=== PATIENT | male | born 1955 | race Caucasian/White ===

== ENCOUNTER 2020-03-30 12:09 | Outpatient (CLI) | payer OTHER | END 2020-03-30 23:59 | disposition home or self-care (01) | LOC: LAB 12:09 | PROVIDERS: ATTEND Specialist | DX: Z01.812 Encounter for preprocedural laboratory examination (principal); Z20.828 Contact with and (suspected) exposure to other viral communicable diseases | CPT/HCPCS: 87426; C9803; U0003 ==

== ENCOUNTER 2020-05-18 07:28 | Inpatient (IN) | payer OTHER ==
[~2020-05-18] VITALS: Ht 167.6 cm; Wt 88.5 kg
[~2020-05-18 07:28] MED LIST: ATOR40TA PO; CYCL7.5T PO; GABA800T11 PO; IBUP-1953 PO; MAGN250T10 PO; NIFE-35 PO; NORT25CA PO
[2020-05-18 08:15] VITALS: BP 145/85
[2020-05-18] MEDS ORDERED: BUPIVACAINE 0.5 % PF 150 MG/30 ML VIAL ONE (09:29)
[2020-05-18] MEDS ORDERED: BACITRACIN 50000 UNITS/VIAL ONE (09:29)
[2020-05-18] MEDS ORDERED: ANESTHESIA TRAY IN PYXIS 1 EA TRAY MC ONE (09:29)
--- NOTE | 2020-05-18 09:41 | NUR ---
RN NOTES PATIENT TAKEN TO OR VIA PATIENT'S BED, ACCOMPANIED BY 2 OR NURSES.
[2020-05-18] MEDS ORDERED: FENTANYL PF 100MCG/2ML AMPUL ONE (09:47)
[2020-05-18] MEDS ORDERED: KETAMINE HCL (500MG/10ML) 50 MG/ML VIAL ONE (09:47)
[2020-05-18] MEDS ORDERED: SCOPOLAMINE PATCH 1 MG/72HR TD ONE (09:48)
[2020-05-18] MEDS ORDERED: PROPOFOL 100 ML ONE (10:05)
[2020-05-18] MEDS ORDERED: TRANEXAMIC ACID 3,000 MG in SODIUM CHLORIDE IRRIG SOLUTION 70 ML IR ONE (11:00)
[2020-05-18] MEDS ORDERED: SEVOFLURANE 250 ML BOTTLE IH ONE (11:37)
[2020-05-18] MEDS ORDERED: DESFLURANE 240 ML BOTTLE IH ONE (11:41)
[2020-05-18] MEDS ORDERED: DOCUSATE SODIUM 250 MG CAPSULE PO PRN (13:30)
[2020-05-18] MEDS ORDERED: HYDROMORPHONE 1 MG/1 ML DISP.SYRIN IV PRN (13:30)
[2020-05-18] MEDS ORDERED: HYDROCODONE/APAP 5/325MG TABLET PO PRN (13:30)
[2020-05-18] MEDS ORDERED: ZOLPIDEM TARTRATE 5 MG TABLET PO PRN (13:30)
[2020-05-18] MEDS ORDERED: IV LR 1000 ML 1,000 ML IV PRN ×2 (13:30→15:00)
[2020-05-18] MEDS ORDERED: BISACODYL SUPP (10 MG) 10 MG/SUPP.RECT SUPP.RECT RC PRN (13:30)
[2020-05-18] MEDS ORDERED: ONDANSETRON HCL/PF 4 MG/2 ML VIAL IVP PRN (13:30)
[2020-05-18] MEDS ORDERED: SENNOSIDES 8.6 MG TABLET PO PRN (13:30)
[2020-05-18] MEDS ORDERED: MAG HYDROX/AL HYDROX/SIMETH 30 ML UDC PO PRN (14:00)
[2020-05-18] MEDS ORDERED: METHOCARBAMOL (500MG) 500 MG TABLET PO PRN (14:00)
[2020-05-18] MEDS ORDERED: CLONIDINE HCL 0.1 MG TABLET PO PRN (14:00)
[2020-05-18] MEDS ORDERED: BUTALB/APAP/CAFFEINE 1 EACH TABLET PO PRN ×2 (14:00)
[2020-05-18] MEDS ORDERED: MAGNESIUM HYDROXIDE 30 ML UDC PO PRN (14:00)
--- NOTE | 2020-05-18 16:41 | NUR ---
RN NOTES INDER Casey/ DR. STAPLETON FOR PATIENT TO BE ON CLEAR LIQUIDS AND ADVANCE TOLERATED.
[2020-05-18] MEDS: HYDROMORPHONE 1 MG/1 ML DISP.SYRIN IM/IV/SC PRN ×2 (16:48→21:18)
[2020-05-18] MEDS: MAGNESIUM OXIDE 400 MG TABLET PO SCH (17:00)
[2020-05-18] MEDS: DOCUSATE SODIUM 100 MG CAPSULE PO SCH (17:00)
[2020-05-18] MEDS ORDERED: GABAPENTIN 400 MG CAPSULE PO SCH (17:00)
[2020-05-18] MEDS: NORTRIPTYLINE HCL 25 MG CAPSULE PO SCH (17:00)
[2020-05-18] MEDS: diphenhydrAMINE HCL 25 MG CAPSULE PO PRN (18:32)
[2020-05-18] MEDS: HYDROCODONE/APAP 5/325MG TABLET PO PRN (18:36)
--- NOTE | 2020-05-18 18:36 | NUR ---
RN NOTES PATIENT IS FOR DAY SURGERY, S/P L TOTAL HIP ARTHROPLASTY. PER DR. SHEN, PATIENT TO STAY OVERNIGHT. MED RECON DONE BY DR. STAPLETON.
--- NOTE | 2020-05-18 19:32 | NUR ---
RN NOTES PATIENT IS IN BED RESTING, AWAKE AND VERBALLY RESPONSIVE, NOT IN ACUTE DISTRESS. A/O X4, ABLE TO MAKE NEEDS KNOWN. TOLERATES CLEAR LIQUIDS AT THIS TIME AND ABLE TO EAT SALTINE CRACKERS W/O COMPLAINT OF NAUSEA NOR VOMITING. PRN ANALGESICS GIVEN ORDERED, VERBALIZED DECREASE IN PAIN. SAFETY PRECAUTIONS IN PLACE: BED LOCKED AND ON LOWEST POSITION, SR UP X2, CALL LIGHT W/IN REACH. WILL ENDORSE TO BROADCAST OPERATIONS DIRECTOR NURSE FOR IMELDA.
--- NOTE | 2020-05-18 19:45 | NUR ---
MS RN OPENING NOTES PATIENT AWAKE IN BED. A/OX4. ON RA; NO S/S OF SOB; BREATHING IS EVEN AND UNLABORED. PATIENT C/O SLIGHT SWELLING AND PAIN ON UPPER LIP; PER PATIENT, LAST SURGERY ON LEFT KNEE SIX WEEKS AGO HE HAD SWELLING ON UPPER LIP POST-OP; PATIENT ABLE TO DRINK/SWALLOW WATER WITHOUT DIFFICULTY. IV PRESENT ON LEFT FA, SIZE 20, INTACT & PATENT, HEP LOCKED. LEFT HIP SURGICAL DRESSING IS DRY AND INTACT. SAFETY MEASURES IN PLACE AND PATIENT'S NEEDS MET. BED LOCKED, SIDE RAILS X2, CALL LIGHT WITHIN REACH. WILL CONTINUE TO MONITOR.
[2020-05-18] MEDS: ANCEF 1 GM/50 ML D5W IV SCH ×2 (20:15)
[2020-05-18] MEDS: GABAPENTIN 300 MG CAPSULE PO SCH (21:17)
[2020-05-18] MEDS: FAMOTIDINE (20 MG) 20 MG TABLET PO SCH (21:18)
[2020-05-18] MEDS: MENTHOL/CETYLPYRD (CEPACOL) 1 LOZ LOZENGE PO PRN ×2 (21:30→23:41)
[2020-05-18] MEDS ORDERED: GABAPENTIN 300 MG CAPSULE PO SCH (22:00)
--- NOTE | 2020-05-18 23:58 | NUR ---
MS RN NOTES PATIENT C/O OF DIFFICULTY URINATING AND LOWER ABDOMINAL PAIN. LOWER ABDOMEN IS HARD AND DISTENDED. BLADDER SCANNER PERFORMED AND SHOWED 630 ML OF URINE. NOTIFIED CARTON LINER RASHAWN GALVEZ. RECEIVED ORDER FOR ONE TIME STRAIGHT CATH.
[2020-05-19] MEDS: HYDROMORPHONE 1 MG/1 ML DISP.SYRIN IM/IV/SC PRN ×3 (00:32→13:42)
--- NOTE | 2020-05-19 00:40 | NUR ---
MS RN NOTES UNABLE TO INSERT STRAIGHT CATH. NOTIFIED METAL COATER RASHAWN GALVEZ. RECEIVED ORDERS FOR INDWELLING CUDET CATHETER. CATHETER INSERTED BY ER NURSEVIANCA. CLEAR YELLOW URINE DRAINING WELL; PATIENT STATED RELIEF OF BLADDER PRESSURE. WILL CONTINUE TO MONITOR.
[2020-05-19] MEDS: ANCEF 1 GM/50 ML D5W IV SCH ×2 (04:07)
[2020-05-19 06:45] LABS: BASOPHILS % (AUTO) 0.1 % (0.0-2.0); HEMATOCRIT 34 % (39-51); HEMOGLOBIN 11.3 g/dL (13.5-17.5); LYMPHOCYTES # (AUTO) 1.6 /CMM (0.8-4.8); LYMPHOCYTES % (AUTO) 19.7 % (20.0-44.0); MEAN CORPUSCULAR HGB CONC 33 g/dl (31.0-36.0); MEAN CORPUSCULAR VOLUME 91 fL (80-96); MONOCYTES # (AUTO) 0.7 /CMM (0.1-1.30); MONOCYTES % (AUTO) 7.9 % (2.0-12.0); NEUTROPHILS % (AUTO) 72.3 % (43.0-81.0); PLATELET COUNT (AUTO) 235 /CMM (150-450); RED BLOOD CELL COUNT(AUTO) 3.73 MIL/uL (4.5-6.0); WHITE BLOOD COUNT (AUTO) 8.3 K/uL (4.3-11.0)
[2020-05-19 06:55] LABS: CALCIUM, SERUM 8.7 mg/dL (8.5-10.1); CREATININE 1.2 mg/dL (0.6-1.3); POTASSIUM 4.5 mmol/L (3.5-5.1)
[2020-05-19 07:06] LABS: THYROID STIMULATING HORMONE 0.145 uIU/mL (0.358-3.74)
--- NOTE | 2020-05-19 07:26 | NUR ---
MS/RN OPENING NOTES RECEIVED PATIENT ON BED AWAKE ALERT AND ORIENTED X4. PATIENT IN NO APPARENT RESPIRATORY DISTRESS NOTED. NO COMPLAINED OF PAIN AT THIS TIME. PATIENT COMPLAINED OF ETCHING AND SWOLLEN LIPS. BENADRYL 25MG 1 TAB WAS GIVEN. WILL CONTINUE TO MONITOR.
[2020-05-19] MEDS: diphenhydrAMINE HCL 25 MG CAPSULE PO PRN ×2 (07:31→13:46)
--- NOTE | 2020-05-19 07:50 | NUR ---
MS RN CLOSING NOTES PATIENT SLEEPING, EASY TO AWAKEN. A/OX4. ON RA; NO S/S OF SOB; BREATHING IS EVEN AND UNLABORED. NO S/S OF PAIN NOTED. IV PRESENT ON LEFT FA, SIZE 20, INTACT & PATENT, HEP LOCKED. LEFT HIP SURGICAL DRESSING IS DRY AND INTACT. SAFETY MEASURES IN PLACE AND PATIENT'S NEEDS MET. BED LOCKED, SIDE RAILS X2, CALL LIGHT WITHIN REACH. ENDORSED TO DAY SHIFT RN PLAN OF CARE.
[2020-05-19 08:00] VITALS: BP 140/78
[2020-05-19] MEDS: FAMOTIDINE (20 MG) 20 MG TABLET PO SCH ×2 (08:37→21:34)
[2020-05-19] MEDS: MAGNESIUM OXIDE 400 MG TABLET PO SCH ×2 (08:38→17:12)
[2020-05-19] MEDS: NIFEdipine XL (30MG) 30 MG TAB PO SCH (08:38)
[2020-05-19] MEDS: BETHANECHOL CHLORIDE (25 MG) 25 MG TABLET PO SCH ×3 (08:39→21:34)
[2020-05-19] MEDS: DOCUSATE SODIUM 100 MG CAPSULE PO SCH ×2 (08:39→17:11)
[2020-05-19] MEDS: ESCITALOPRAM OXALATE (10 MG) 10 MG TABLET PO SCH (08:39)
[2020-05-19] MEDS: ASPIRIN 325 MG TABLET PO SCH ×2 (08:39→17:11)
[2020-05-19] MEDS: TAMSULOSIN 0.4 MG CAP.SR.24H PO SCH (08:39)
[2020-05-19] MEDS: ATORVASTATIN 40 MG TABLET PO SCH (08:39)
[2020-05-19] MEDS: NORTRIPTYLINE HCL 25 MG CAPSULE PO SCH ×2 (09:57→17:11)
[2020-05-19 16:00] VITALS: BP 131/86
[2020-05-19] MEDS: ACETAMINOPHEN 325 MG TABLET PO PRN (17:09)
--- NOTE | 2020-05-19 17:09 | NUR ---
MS/RN NOTES PATIENT COMPLAINED OF HEADACHE AND PATIENT REQUEST FOR TYLENOL 650 MG 1 TAB P.O AND WAS GIVEN. WILL CONTINUE TO MONITOR.
--- NOTE | 2020-05-19 19:36 | NUR ---
MS RN OPENING NOTES PATIENT SLEEPING, AWAKENS TO NAME. A/OX4. ON RA; NO S/S OF ACUTE RESPIRATORY DISTRESS; BREATHING IS EVEN AND UNLABORED. NO C/O PAIN. SURGICAL DRESSING ON LEFT HIP DRY AND INTACT. IV PRESENT ON LEFT FA, SIZE 10, INTACT & PATENT, HEP LOCKED. HUDDLESTON CATH PRESENT AND DRAINING WELL; CLEAR YELLOW URINE PRESENT. SAFETY MEASURES IN PLACE AND PATIENT'S NEEDS MET. BED LOCKED, SEMI FOWLERS POSITION, SIDE RAILS X 2, CALL LIGHT WITHIN REACH. WILL CONTINUE TO MONITOR.
--- NOTE | 2020-05-19 19:42 | NUR ---
MS/RN CLOSING NOTES PATIENT IS ALERT AND ORIENTED X4. PATIENT IN NO APPARENT RESPIRATORY DISTRESS NOTED. NO COMPLAINED OF PAIN AT THIS TIME. IV ACCESS AT LEFT FOREARM # 20 G PATENT AND INTACT. SEEN AND EXAMINED BY MD WITH ORDERS MADE AND CARRIED OUT. ALL DUE MEDICATIONS WAS GIVEN. SAFETY PRECAUTIONS WAS IN PLACED. BED IN LOWEST POSITION AND LOCKED. SIDERAILS UP X 2. CALL LIGHT WITHIN REACH. WILL ENDORSED TO SOLAR SALES REP FOR IMELDA.
[2020-05-19 20:39] VITALS: BP 136/77
[2020-05-19] MEDS: GABAPENTIN 300 MG CAPSULE PO SCH (21:34)
[2020-05-19] MEDS: MENTHOL/CETYLPYRD (CEPACOL) 1 LOZ LOZENGE PO PRN (21:34)
[2020-05-20 00:07] VITALS: BP 111/69
[2020-05-20] MEDS: HYDROMORPHONE 1 MG/1 ML DISP.SYRIN IM/IV/SC PRN ×4 (00:07→20:33)
[2020-05-20 04:00] VITALS: BP 117/67
--- NOTE | 2020-05-20 07:19 | NUR ---
MS RN NOTES PATIENT IN BED EYES CLOSED, EASILY AWAKEN. ALERT ORIENTED X 4. NO ACUTE DISTRESS NOTED. NO SOB NOTED. NO FACIAL GRIMACING NOTED. IV ACCESS PATENT AND INTACT, NO REDNESS, NO SWELLING NOTED. HEAD OF BED ELEVATED. SAFETY MEASURES IN PLACE. CALL LIGHT WITHIN REACH. WILL CONTINUE TO MONITOR ACCORDINGLY.
--- NOTE | 2020-05-20 07:45 | NUR ---
MS RN OPENING NOTES PATIENT SLEEPING. A/OX4. ON RA; NO S/S OF ACUTE RESPIRATORY DISTRESS; BREATHING IS EVEN AND UNLABORED. NO S/S OF PAIN NOTED. SURGICAL DRESSING ON LEFT HIP DRY AND INTACT. IV PRESENT ON LEFT FA, SIZE 10, INTACT & PATENT, HEP LOCKED. HUDDLESTON CATH PRESENT AND DRAINING WELL; CLEAR YELLOW URINE PRESENT. SAFETY MEASURES IN PLACE AND PATIENT'S NEEDS MET. BED LOCKED, SIDE RAILS X 2, CALL LIGHT WITHIN REACH. ENDORSED TO DAY SHIFT RN PLAN OF CARE.
[2020-05-20 08:00] VITALS: BP 110/72
[2020-05-20] MEDS: BETHANECHOL CHLORIDE (25 MG) 25 MG TABLET PO SCH ×3 (09:07→20:35)
[2020-05-20] MEDS: DOCUSATE SODIUM 100 MG CAPSULE PO SCH ×2 (09:07→17:31)
[2020-05-20] MEDS: ATORVASTATIN 40 MG TABLET PO SCH (09:07)
[2020-05-20] MEDS: ASPIRIN 325 MG TABLET PO SCH ×2 (09:07→17:31)
[2020-05-20] MEDS: NORTRIPTYLINE HCL 25 MG CAPSULE PO SCH ×2 (09:08→17:31)
[2020-05-20] MEDS: ESCITALOPRAM OXALATE (10 MG) 10 MG TABLET PO SCH (09:08)
[2020-05-20] MEDS: FAMOTIDINE (20 MG) 20 MG TABLET PO SCH ×2 (09:08→20:35)
[2020-05-20] MEDS: TAMSULOSIN 0.4 MG CAP.SR.24H PO SCH (09:08)
[2020-05-20] MEDS: NIFEdipine XL (30MG) 30 MG TAB PO SCH (09:09)
[2020-05-20] MEDS: MAGNESIUM OXIDE 400 MG TABLET PO SCH ×2 (09:46→17:31)
[2020-05-20] MEDS: HYDROCODONE/APAP 5/325MG TABLET PO PRN (10:09)
--- NOTE | 2020-05-20 10:17 | NUR ---
MS RN NOTES PATIENT CHANGED MIND DOES NOT WANT TO TAKE NORCO.
[2020-05-20] MEDS: ACETAMINOPHEN 325 MG TABLET PO PRN (10:24)
--- NOTE | 2020-05-20 13:54 | NUR ---
MS RN NOTES CLARIFIED WITH DR NYDIA STAPLETON IF HE'S OK WITH THE [facility] ADMINISTRATION SCHEDULE 0900, 1300 AND 2100.
[2020-05-20 16:00] VITALS: BP 120/70
--- NOTE | 2020-05-20 19:00 | NUR ---
MS RN NOTES PATIENT IN BED ALERT ORIENTED X 4. NO ACUTE DISTRESS NOTED. NO SOB NOTED. PATIENT COMFORTABLE, NO FACIAL GRIMACING NOTED. IV ACCESS PATENT AND INTACT, NO REDNESS, NO SWELLING NOTED. NEEDS ATTENDED AND ANTICIPATED. SAFETY MEASURES IN PLACE. CALL LIGHT WITHIN REACH. WILL ENDORSE TO NIGHT NURSE FOR CONTINUITY OF CARE.
--- NOTE | 2020-05-20 19:52 | NUR ---
MS/RN OPENING NOTE Patient awake in bed, A/O x4, WBAT. Breath sounds even, clear, unlabored. No acute distress or SOB on room air. Brachial and pedal pulse 2+, symmetrical. No JVD. CRP <3seconds. Skin warm, pink, dry, appropriate for ethnicity. Surgical incision noted on left hip, dressing intact, dry, no drainage. IV site LFA 20g saline locked, patent and intact. No signs of redness or infiltration. Abdomen round, soft, non-tender. BS active. Mesa catheter in place. Urine output clear and yellow. Patient is incontinent. Bed in low position, wheels locked, side rails up x2, call light within reach.
[2020-05-20 20:00] VITALS: BP 117/72
[2020-05-20 20:58] VITALS: BP 117/72
[2020-05-20] MEDS: GABAPENTIN 300 MG CAPSULE PO SCH (21:33)
[2020-05-21 07:21] LABS: CALCIUM, SERUM 8.3 mg/dL (8.5-10.1); CREATININE 1.1 mg/dL (0.6-1.3); POTASSIUM 3.7 mmol/L (3.5-5.1)
--- NOTE | 2020-05-21 07:21 | NUR ---
MS/RN CLOSING NOTE Patient awake in bed, A/O x4, WBAT. Breath sounds even, clear, unlabored. No acute distress or SOB on room air. Brachial and pedal pulse 2+, symmetrical. Skin warm, pink, dry, appropriate for ethnicity. Surgical incision noted on left hip, dressing intact, dry, no drainage. IV site LFA 20g saline locked, patent and intact. No signs of redness or infiltration. Mesa catheter in place. Urine output clear and yellow. Bed in low position, wheels locked, side rails up x2, call light within reach.
--- NOTE | 2020-05-21 07:32 | NUR ---
RN MS OPENING NOTES RECEIVED PATIENT RESTING IN BED AWAKE, A/OX4. PATIENT ON RA WITH NO C/O OR S/S OF SOB, BREATHING EVEN AND UNLABORED, NO ACUTE RESPIRATORY DISTRESS NOTED. IV TO LT FA #20G PATENT AND INTACT FLUSHING WELL. PT C/O PAIN 8/10 ON PAIN SCALE TO LT HIP AREA, DRESSING IN PLACE KEPT CLEAN AND DRY. BED IS AT LOWEST POSITION AND LOCKED WITH SIDE RAILS UPX2 AND CALL LIGHT WITH IN REACH. ALL SAFETY MEASURES IN PLACE. WILL CONTINUE TO MONITOR PATIENT THROUGH OUT SHIFT.
[2020-05-21 07:34] LABS: BASOPHILS % (AUTO) 0.3 % (0.0-2.0); EOSINOPHILS % (AUTO) 0.5 % (0.0-6.0); HEMATOCRIT 33 % (39-51); HEMOGLOBIN 11.2 g/dL (13.5-17.5); LYMPHOCYTES # (AUTO) 1.9 /CMM (0.8-4.8); LYMPHOCYTES % (AUTO) 23.6 % (20.0-44.0); MEAN CORPUSCULAR HGB CONC 34 g/dl (31.0-36.0); MEAN CORPUSCULAR VOLUME 91 fL (80-96); MONOCYTES # (AUTO) 0.8 /CMM (0.1-1.30); MONOCYTES % (AUTO) 9.9 % (2.0-12.0); NEUTROPHILS # (AUTO) 5.2 /CMM (1.8-8.9); NEUTROPHILS % (AUTO) 65.7 % (43.0-81.0); PLATELET COUNT (AUTO) 224 /CMM (150-450); RED BLOOD CELL COUNT(AUTO) 3.67 MIL/uL (4.5-6.0); WHITE BLOOD COUNT (AUTO) 7.9 K/uL (4.3-11.0)
[2020-05-21] MEDS: HYDROMORPHONE 1 MG/1 ML DISP.SYRIN IM/IV/SC PRN ×3 (07:48→18:54)
[2020-05-21 08:00] VITALS: BP 119/68
[2020-05-21] MEDS: ATORVASTATIN 40 MG TABLET PO SCH (09:23)
[2020-05-21] MEDS: ESCITALOPRAM OXALATE (10 MG) 10 MG TABLET PO SCH (09:23)
[2020-05-21] MEDS: ASPIRIN 325 MG TABLET PO SCH ×2 (09:23→17:02)
[2020-05-21] MEDS: DOCUSATE SODIUM 100 MG CAPSULE PO SCH ×2 (09:23→17:02)
[2020-05-21] MEDS: TAMSULOSIN 0.4 MG CAP.SR.24H PO SCH (09:23)
[2020-05-21] MEDS: MAGNESIUM OXIDE 400 MG TABLET PO SCH ×2 (09:23→17:03)
[2020-05-21] MEDS: BETHANECHOL CHLORIDE (25 MG) 25 MG TABLET PO SCH ×3 (09:24→21:16)
[2020-05-21] MEDS: FAMOTIDINE (20 MG) 20 MG TABLET PO SCH ×2 (09:24→21:16)
[2020-05-21] MEDS: NORTRIPTYLINE HCL 25 MG CAPSULE PO SCH ×2 (09:24→17:03)
[2020-05-21] MEDS: NIFEdipine XL (30MG) 30 MG TAB PO SCH (09:24)
[2020-05-21 16:00] VITALS: BP 120/73
[2020-05-21] MEDS: ACETAMINOPHEN 325 MG TABLET PO PRN (17:09)
[2020-05-21] MEDS: ONDANSETRON HCL/PF 4 MG/2 ML VIAL IV PRN (19:02)
--- NOTE | 2020-05-21 19:10 | NUR ---
RN MS OPENING NOTES RECEIVED PATIENT IN BED AWAKE ALERT AND ORIENTED X4, RESPIRATIONS EVEN AND UNLABORED WITH EQUAL RISE AND FALL OF CHEST, DENIES ANY PAIN OR DISCOMFORT AT THIS TIME. URINAL AT BEDSIDE AND WITHIN REACH, PT IS ABLE TO URINATE NO URINE RETENTION, IV SITE TO LEFT FA #20G INTACT AND PATENT, NO REDNESS, NO INFILTRATION PRESENT, SL. DRESSINGS REMAINS INTACT ORIENTED TO STAFF AND CALL LIGHT AND KEPT WITHIN REACH ,ALL NEEDS ATTENDED AT THIS TIME, WILL CONTINUE TO MONITOR AND ATTEND TO NEEDS. BED ALARM IN PLACE.
--- NOTE | 2020-05-21 19:21 | NUR ---
RN MS CLOSING NOTES PATIENT RESTING COMFORTABLY IN BED AWAKE, A/OX4. PATIENT ON RA WITH NO C/O OR S/S OF SOB, BREATHING EVEN AND UNLABORED, NO ACUTE RESPIRATORY DISTRESS NOTED. IV TO LT FA #20G PATENT AND INTACT FLUSHING WELL. PT C/O PAIN 9/10 ON PAIN SCALE TO LT HIP AREA DILAUDID 0.5MG GIVE IV, DRESSING IN PLACE KEPT CLEAN AND DRY. BED IS AT LOWEST POSITION AND LOCKED WITH SIDE RAILS UPX2 AND CALL LIGHT WITH IN REACH. ALL SAFETY MEASURES IN PLACE. PT AWAITING D/C PENDING APPROVAL FOR ACUTE REHAB, WILL ENDORSE TO ONCOMING SHIFT.
[2020-05-21 20:00] VITALS: BP 106/64
[2020-05-21] MEDS: diphenhydrAMINE HCL 25 MG CAPSULE PO PRN (21:16)
--- NOTE | 2020-05-21 21:16 | NUR ---
rn ms notes patient requested benadryl prn states he felt itchy. prn benadryl given as ordered, will continue to monitor for effectiveness.
[2020-05-21] MEDS: GABAPENTIN 300 MG CAPSULE PO SCH (21:19)
--- NOTE | 2020-05-22 04:41 | NUR ---
RN MS NOTES RECEIVED CALL FROM NEW ORDER TO DC 02 IN THE AM. AM SHIFT TO GIVE NORCO PRN WITH BREAKFAST, AND CONTINUE/APPLY SCD'S
--- NOTE | 2020-05-22 06:54 | NUR ---
RN MS CLOSING NOTES PATIENT IN BED AWAKE ALERT AND ORIENTED X4, RESPIRATIONS EVEN AND UNLABORED WITH EQUAL RISE AND FALL OF CHEST, DENIES ANY PAIN OR DISCOMFORT AT THIS TIME. URINAL AT BEDSIDE AND WITHIN REACH OUTPUT 300ML, PT IS ABLE TO URINATE NO URINE RETENTION, IV SITE TO LEFT FA #20G INTACT AND PATENT, NO REDNESS, NO INFILTRATION PRESENT, SL. DRESSINGS REMAINS INTACT TO LEFT HIP , SCD'S INTACT. CALL LIGHT KEPT WITHIN REACH ,ALL NEEDS ATTENDED AT THIS TIME, WILL CONTINUE TO MONITOR AND ATTEND TO NEEDS. BED ALARM IN PLACE AND ENDORSE TO NEXT SHIFT. SLEPT WELL.
--- NOTE | 2020-05-22 07:50 | NUR ---
RN MS OPENING NOTES RECEIVED PATIENT RESTING IN BED AWAKE, A/OX4. PATIENT ON RA WITH NO C/O OR S/S OF SOB, BREATHING EVEN AND UNLABORED, NO ACUTE RESPIRATORY DISTRESS NOTED. IV TO LT FA #20G PATENT AND INTACT FLUSHING WELL. NO C/O PAIN AT THIS TIME. DRESSING TO LT HIP IN PLACE; CLEAN AND DRY. BED IS AT LOWEST POSITION AND LOCKED WITH SIDE RAILS UPX2 AND CALL LIGHT WITH IN REACH. ALL SAFETY MEASURES IN PLACE. WILL CONTINUE TO MONITOR THROUGH SHIFT.
[2020-05-22 08:00] VITALS: BP 131/63
[2020-05-22] MEDS ORDERED: HYDROCODONE/APAP 5/325MG TABLET PO ONE (08:00)
[2020-05-22] MEDS: FAMOTIDINE (20 MG) 20 MG TABLET PO SCH ×2 (08:28→21:46)
[2020-05-22] MEDS: ESCITALOPRAM OXALATE (10 MG) 10 MG TABLET PO SCH (08:28)
[2020-05-22] MEDS: TAMSULOSIN 0.4 MG CAP.SR.24H PO SCH (08:28)
[2020-05-22] MEDS: NORTRIPTYLINE HCL 25 MG CAPSULE PO SCH ×2 (08:28→16:07)
[2020-05-22] MEDS: ATORVASTATIN 40 MG TABLET PO SCH (08:28)
[2020-05-22] MEDS: ASPIRIN 325 MG TABLET PO SCH ×2 (08:28→16:07)
[2020-05-22] MEDS: MAGNESIUM OXIDE 400 MG TABLET PO SCH ×2 (08:28→16:07)
[2020-05-22] MEDS: NIFEdipine XL (30MG) 30 MG TAB PO SCH (08:31)
[2020-05-22] MEDS: HYDROMORPHONE 1 MG/1 ML DISP.SYRIN IM/IV/SC PRN ×2 (11:35→16:20)
[2020-05-22 16:00] VITALS: BP 119/64
[2020-05-22] MEDS: ONDANSETRON HCL/PF 4 MG/2 ML VIAL IV PRN (16:52)
--- NOTE | 2020-05-22 18:22 | NUR ---
RN MS CLOSING NOTES PATIENT RESTING IN BED AWAKE, A/OX4. PATIENT ON RA WITH NO C/O SOB, BREATHING EVEN AND UNLABORED. IV TO LT FA #20G PATENT AND INTACT FLUSHING WELL. PT C/O PAIN 5/10 ON PAIN SCALE TO LT HIP. DRESSING IN PLACE KEPT CLEAN AND DRY. BED IS AT LOWEST POSITION AND LOCKED WITH SIDE RAILS UPX2 AND CALL LIGHT WITH IN REACH. ALL SAFETY MEASURES IN PLACE. PT WAITING ON APPROVAL FOR ACUTE REHAB, WILL ENDORSE TO ONCOMING SHIFT.
[2020-05-22 20:00] VITALS: BP 131/69
--- NOTE | 2020-05-22 20:27 | NUR ---
MS RN OPENING NOTES: RECEIVED PATIENT IN BED, AWAKE, WATCHING TV, NO COMPLAINS OF PAIN OR DISCOMFORT THIS TIME OF ASSESSMENT. PATIENT'S VITAL SIGNS ARE STABLE.NO RESPIRATORY DISTRESS NOTED. ASSISTED PATIENT WITH HIS NEEDS. WILL CONTINUE TO MONITOR PATIENT.
[2020-05-22] MEDS: GABAPENTIN 400 MG CAPSULE PO SCH (21:46)
[2020-05-23] MEDS: HYDROMORPHONE 1 MG/1 ML DISP.SYRIN IM/IV/SC PRN ×3 (03:45→22:01)
--- NOTE | 2020-05-23 06:56 | NUR ---
MS RN CLOSING NOTES: PATIENT RESTING ON BED COMFORTABLY. COMPLAINED OF PAIN DURING THE SHIFT. DILAUDID IV REQUESTED BY PATIENT- THIS IS A PRN ORDER. ATTENDED TO ALL PATIENT'S NEEDS. WILL ENDORSE PATIENT TO DAY SHIFT NURSE.
--- NOTE | 2020-05-23 07:45 | NUR ---
RN OPENING NOTE; RECEIVED PT LYING IN BED. NO ACUTE DISTRESS NOTED. VSS,AFEBRILE NO SOB NOTED. IV TO LFA INTACT, FLUSHING, NO S/SOX OF INFILTRATE OR INFECTION NOTED. PT A OX3, ABLE TO MAKE NEEDS KNOWN. STABEL ON RA. USING INCENTIVE SPIROMETER. INDEPENDENT WITH BED POSITIONING. BED IN LOW AND LOCKED POSITION WITH SIDE RAILS UP X 2 FOR SAFETY. WILL CONT TO MONITOR.
[2020-05-23 08:00] VITALS: BP 119/69
[2020-05-23] MEDS: FAMOTIDINE (20 MG) 20 MG TABLET PO SCH ×2 (09:25→21:52)
[2020-05-23] MEDS: ASPIRIN 325 MG TABLET PO SCH ×2 (09:25→16:33)
[2020-05-23] MEDS: NIFEdipine XL (30MG) 30 MG TAB PO SCH (09:25)
[2020-05-23] MEDS: MAGNESIUM OXIDE 400 MG TABLET PO SCH ×2 (09:26→16:33)
[2020-05-23] MEDS: ATORVASTATIN 40 MG TABLET PO SCH (09:26)
[2020-05-23] MEDS: NORTRIPTYLINE HCL 25 MG CAPSULE PO SCH ×2 (09:26→16:33)
[2020-05-23] MEDS: TAMSULOSIN 0.4 MG CAP.SR.24H PO SCH (09:26)
[2020-05-23] MEDS: ESCITALOPRAM OXALATE (10 MG) 10 MG TABLET PO SCH (09:29)
[2020-05-23 12:00] LABS: BASOPHILS % (AUTO) 0.2 % (0.0-2.0); EOSINOPHILS % (AUTO) 1.6 % (0.0-6.0); HEMATOCRIT 33 % (39-51); HEMOGLOBIN 10.8 g/dL (13.5-17.5); LYMPHOCYTES # (AUTO) 1.5 /CMM (0.8-4.8); LYMPHOCYTES % (AUTO) 22.3 % (20.0-44.0); MEAN CORPUSCULAR HGB CONC 33 g/dl (31.0-36.0); MEAN CORPUSCULAR VOLUME 90 fL (80-96); MONOCYTES # (AUTO) 0.6 /CMM (0.1-1.30); MONOCYTES % (AUTO) 9.6 % (2.0-12.0); NEUTROPHILS # (AUTO) 4.5 /CMM (1.8-8.9); NEUTROPHILS % (AUTO) 66.3 % (43.0-81.0); PLATELET COUNT (AUTO) 275 /CMM (150-450); WHITE BLOOD COUNT (AUTO) 6.7 K/uL (4.3-11.0)
[2020-05-23 12:15] LABS: CALCIUM, SERUM 8.5 mg/dL (8.5-10.1); CREATININE 1.2 mg/dL (0.6-1.3); POTASSIUM 3.3 mmol/L (3.5-5.1)
--- NOTE | 2020-05-23 12:35 | NUR ---
RN NOTE; PAIN PT REQUESTING PAIN MEDICATIONS. REPORTS PAIN AT LEFT HIP. MEDICATED WITH DILAUDID 0.5 MG IVP
--- NOTE | 2020-05-23 12:55 | NUR ---
RN NOTE; PAIN PT REPOTING GOOD RELIEF WITH IVP PAIN MEDICAITON
--- NOTE | 2020-05-23 14:45 | NUR ---
RN NOTE COVID-19 ANTIGEN ORDERED PER DAVID STAPLETON FOR PATIENT PLACEMENT. NOTED AND CARRIED OUT.
[2020-05-23 16:00] VITALS: BP_SYST 129; BP_SYST 160; BP_DIAS 75; BP_DIAS 90
--- NOTE | 2020-05-23 19:20 | NUR ---
MS/RN OPENING NOTES: RECEIVED PT LYING IN BED, A/OX4. VERBALLY RESPONSIVE AND ABLE TO MAKE NEEDS KNOWN. NO ACUTE DISTRESS NOTED. NO SOB NOTED. IV TO LFA INTACT, FLUSHING, STABLE ON RA. USING INCENTIVE SPIROMETER AT BED SIDE. AMBULATES TO THE BATHROOM WITH WALKER. INDEPENDENT WITH BED POSITIONING. SAFETY MEASURES IN PLACE. BED IN LOW AND LOCKED POSITION WITH SIDE RAILS UP X 2 FOR SAFETY. WILL CONTINUE TO MONITOR.
[2020-05-23 20:00] VITALS: BP 112/71
--- NOTE | 2020-05-23 20:41 | NUR ---
MS/RN NOTES: RELAYED POTASSIUM LEVEL OF 3.[address] MOROCHO, AND ORDERED POTASSIUM CHLORIDE 40MEQ PO ONE TIME.
[2020-05-23] MEDS ORDERED: POTASSIUM CHLORIDE 20 MEQ TAB.PRT.SR PO ONE (21:00)
[2020-05-23] MEDS: GABAPENTIN 400 MG CAPSULE PO SCH (21:52)
--- NOTE | 2020-05-23 22:01 | NUR ---
MS/RN NOTES: PT COMPLAINED OF PAIN ON THE LEFT HIP. REQUESTED DILAUDID. VSS AND WNL. ADMINISTERED DILAUDID 0.5MG Q6 ORDERED. WILL CONTINUE TO MONITOR.
--- NOTE | 2020-05-24 07:35 | NUR ---
MS/RN CLOSING NOTES: PT REMAINS IN BED, A/OX4. VERBALLY RESPONSIVE AND ABLE TO MAKE NEEDS KNOWN. NO ACUTE DISTRESS NOTED. NO SOB NOTED. IV TO LFA INTACT, FLUSHING, STABLE ON RA. USING INCENTIVE SPIROMETER AT BED SIDE. AMBULATES TO THE BATHROOM WITH WALKER. INDEPENDENT WITH BED POSITIONING. SAFETY MEASURES IN PLACE. BED IN LOW AND LOCKED POSITION WITH SIDE RAILS UP X 2 FOR SAFETY. ALL NURSING NEEDS MET AND RENDERED. ENDORSED TO DAY SHIFT FOR IMELDA.
[2020-05-24 08:00] VITALS: BP 118/74
--- NOTE | 2020-05-24 08:00 | NUR ---
RN OPENING NOTE: RECEIVED PT LYING IN BED. C/O 9/10 HIP PAIN. MEDICATED WITH DILAUDID IVP. NO RESPIRATORY DISTRESS OR SOB NOTED. IV TO LFA INTACT, PATENT WITHOUT S/SX OF INFECTION. PT STABLE ON RA. USING INCENTIVE SPIROMETER AT BED SIDE. STEADY WITH WALKER TO THE BATHROOM. INDEPENDENT WITH BED POSITIONING AND PO INTAKE. SAFETY MEASURES IN PLACE. BED IN LOW AND LOCKED POSITION WITH SIDE RAILS UP X 2 FOR SAFETY. CALL LIGHT WITHIN REACH WILL CONTINUE TO MONITOR.
[2020-05-24] MEDS: HYDROMORPHONE 1 MG/1 ML DISP.SYRIN IM/IV/SC PRN ×2 (08:31→23:41)
--- NOTE | 2020-05-24 08:32 | NUR ---
RN NOTE: PAIN PT C/O 02/24 LEFT HIP PAIN. REQUESTING PAIN MEDICATION. MEDICATED WITH DILAUDID 0.5 MG IVP
[2020-05-24] MEDS: ASPIRIN 325 MG TABLET PO SCH ×2 (08:40→18:16)
[2020-05-24] MEDS: TAMSULOSIN 0.4 MG CAP.SR.24H PO SCH (08:40)
[2020-05-24] MEDS: NORTRIPTYLINE HCL 25 MG CAPSULE PO SCH ×2 (08:40→18:16)
[2020-05-24] MEDS: ATORVASTATIN 40 MG TABLET PO SCH (08:40)
[2020-05-24] MEDS: ESCITALOPRAM OXALATE (10 MG) 10 MG TABLET PO SCH (08:40)
[2020-05-24] MEDS: NIFEdipine XL (30MG) 30 MG TAB PO SCH (08:40)
[2020-05-24] MEDS: FAMOTIDINE (20 MG) 20 MG TABLET PO SCH ×2 (08:41→21:45)
[2020-05-24] MEDS: MAGNESIUM OXIDE 400 MG TABLET PO SCH ×2 (08:41→18:16)
[2020-05-24 16:00] VITALS: BP 133/73
--- NOTE | 2020-05-24 19:00 | NUR ---
MS/RN OPENING NOTES: RECEIVED PT LYING IN BED, A/OX4. VERBALLY RESPONSIVE AND ABLE TO MAKE NEEDS KNOWN. ON ROOM AIR, SATURATING WELL. NO ACUTE DISTRESS NOTED. NO SOB NOTED. IV TO LFA INTACT, FLUSHING. USING INCENTIVE SPIROMETER AT BED SIDE. AMBULATES TO THE BATHROOM WITH WALKER. INDEPENDENT WITH BED POSITIONING. NO C/O PAIN AT THIS TIME. SAFETY MEASURES IN PLACE. BED IN LOW AND LOCKED POSITION WITH SIDE RAILS UP X 2 FOR SAFETY. WILL CONTINUE TO MONITOR.
[2020-05-24 20:00] VITALS: BP 126/72
[2020-05-24 20:31] VITALS: BP 126/72
[2020-05-24] MEDS: GABAPENTIN 400 MG CAPSULE PO SCH (21:45)
--- NOTE | 2020-05-25 | NUR ---
MS/RN NOTES: IV TO LFA INTACT PULLED OUT. STARTED A NEW IV LINE ON THE RIGHT HAND #22G INTACT AND PATENT, FLUSHING WELL.
--- NOTE | 2020-05-25 07:00 | NUR ---
MS/RN CLOSING NOTES: PT IN BED, REMAINS A/OX4. VERBALLY RESPONSIVE & ABLE TO MAKE NEEDS KNOWN. NO ACUTE DISTRESS NOTED. NO SOB NOTED. IV TO RIGHT HAND #22G INTACT, FLUSHING, STABLE ON RA. AMBULATES TO THE BATHROOM WITH WALKER. SAFETY MEASURES KEPT IN PLACE. BED IN LOW AND LOCKED POSITION WITH SIDE RAILS UP X 2 FOR SAFETY. ALL NURSING NEEDS MET AND RENDERED. DR. ENGLAND STOPPED BY THE UNIT AT 3AM, AND PER DR. ENGLAND, ENCOURAGE PT TO TAKE NORCO. PT INFORMED AND DAY SHIFT INFORMED. ENDORSED TO DAYSHIFT NURSE FOR IMELDA.
[2020-05-25 08:00] VITALS: BP 150/82
--- NOTE | 2020-05-25 08:00 | NUR ---
RN Opening note Received patient in bed AO x 4 able to responds all stimuli. C/O left hip pain for s/p arthroplasty and given Tylenol 650mg. Skin is warm to touch keep clean/dry, intact IV site on right CLEANING 22g. Respiratory even and unlabored on room air, O2sat 94%, no sob or distress observed. Kept bed locked with elevated HOB for ensure airway and aspiration precaution also lowest bed position for safety. Call light within reach will continue to monitor.
[2020-05-25] MEDS: ACETAMINOPHEN 325 MG TABLET PO PRN (08:05)
[2020-05-25] MEDS: ASPIRIN 325 MG TABLET PO SCH (09:19)
[2020-05-25] MEDS: ESCITALOPRAM OXALATE (10 MG) 10 MG TABLET PO SCH (09:19)
[2020-05-25] MEDS: FAMOTIDINE (20 MG) 20 MG TABLET PO SCH (09:20)
[2020-05-25] MEDS: NIFEdipine XL (30MG) 30 MG TAB PO SCH (09:20)
[2020-05-25] MEDS: TAMSULOSIN 0.4 MG CAP.SR.24H PO SCH (09:20)
[2020-05-25] MEDS: ATORVASTATIN 40 MG TABLET PO SCH (09:20)
[2020-05-25] MEDS: NORTRIPTYLINE HCL 25 MG CAPSULE PO SCH (09:21)
[2020-05-25] MEDS: MAGNESIUM OXIDE 400 MG TABLET PO SCH (09:21)
[2020-05-25 11:04] LABS: BASOPHILS % (AUTO) 0.4 % (0.0-2.0); EOSINOPHILS % (AUTO) 0.4 % (0.0-6.0); HEMATOCRIT 30 % (39-51); HEMOGLOBIN 10.2 g/dL (13.5-17.5); LYMPHOCYTES # (AUTO) 0.9 /CMM (0.8-4.8); LYMPHOCYTES % (AUTO) 16.4 % (20.0-44.0); MEAN CORPUSCULAR HGB CONC 34 g/dl (31.0-36.0); MEAN CORPUSCULAR VOLUME 90 fL (80-96); MONOCYTES # (AUTO) 0.6 /CMM (0.1-1.30); MONOCYTES % (AUTO) 10.2 % (2.0-12.0); NEUTROPHILS % (AUTO) 72.6 % (43.0-81.0); PLATELET COUNT (AUTO) 306 /CMM (150-450); RED BLOOD CELL COUNT(AUTO) 3.38 MIL/uL (4.5-6.0); WHITE BLOOD COUNT (AUTO) 5.5 K/uL (4.3-11.0)
[2020-05-25 11:32] LABS: CALCIUM, SERUM 8.4 mg/dL (8.5-10.1); CREATININE 1.1 mg/dL (0.6-1.3); POTASSIUM 3.3 mmol/L (3.5-5.1)
[2020-05-25 15:29] VITALS: BP 139/72
--- NOTE | 2020-05-25 15:50 | NUR ---
Patient discharge to home given discharge instruction include follow up Dr. Lebron and patient verbally understand. In stable condition, pain with actively but pt tolerated.
--- NOTE | 2020-05-25 16:34 | NUR ---
Patient left facility escorted by staff with wheel chair to the private car, denies discomfort, in stable. condition
== END 2020-05-25 16:30 | disposition home health service (06) | DRG 470 ==
LOC: DS 07:28 → MED 07:30
PROVIDERS: ADMIT Nurse Practitioner Acute Care; ATTEND Nurse Practitioner Acute Care
PROC: 0SRB0JZ Replacement of Left Hip Joint with Synthetic Substitute, Open Approach (ICD-10-PCS; principal; 2020-05-18)
DX: M16.12 Unilateral primary osteoarthritis, left hip (principal); I10 Essential (primary) hypertension; E78.5 Hyperlipidemia, unspecified; E66.9 Obesity, unspecified; F32.9 Major depressive disorder, single episode, unspecified; G43.909 Migraine, unspecified, not intractable, without status migrainosus; G62.9 Polyneuropathy, unspecified; Z86.73 Personal history of transient ischemic attack (TIA), and cerebral infarction without residual deficits; Z79.899 Other long term (current) drug therapy; M19.90 Unspecified osteoarthritis, unspecified site; Z96.653 Presence of artificial knee joint, bilateral; Z68.31 Body mass index [BMI] 31.0-31.9, adult; Z79.82 Long term (current) use of aspirin; Z85.72 Personal history of non-Hodgkin lymphomas; Z88.5 Allergy status to narcotic agent; F39 Unspecified mood [affective] disorder; R31.9 Hematuria, unspecified
CPT/HCPCS: 36415; 80048-TC; 80061-TC; 84443-TC; 85025-TC; 86850-TC; 87081-TC; 88305-TC; 88311-TC; 97112-TC; 97116-TC; 97530-TC; A4217; A6209; A6402; C1776; G0378; J0690; J1100; J1170; J1885; J2405; J3010; J3490; J7060; J7120; Q0163

== ENCOUNTER 2021-12-08 09:36 | Outpatient (CLI) | payer OTHER | END 2021-12-08 23:59 | disposition home or self-care (01) | LOC: LAB 09:36 | PROVIDERS: ATTEND Specialist | DX: Z01.812 Encounter for preprocedural laboratory examination (principal); Z20.822 Contact with and (suspected) exposure to COVID-19 | CPT/HCPCS: C9803; U0003 ==

== ENCOUNTER 2021-12-15 05:16 | Day surgery (SDC) | payer OTHER ==
[~2021-12-15] VITALS: Ht 167.6 cm; Wt 91.6 kg
--- NOTE | 2021-12-15 06:20 | NUR ---
RESTAURANT BARTENDER NOTES: RECEIVED PATIENT AT 0545 AMBULATORY FROM HOME ON SCHEDULE DAY SURGERY( RIGHT CARPAL TUNNEL RELEASE), ON ROOM AIR SATURATING WELL, PATIENT IS NPO SINCE 199912/14/21, PATIENT IS A/OX4, AMBULATORY USING CANE, SKIN ASSESSMENT DONE SKIN IS INTACT, INVENTORY DONE AND SIGNED, PATIENT CONSENT SIGNED, PLACE IV LINE AT [facility] #[facility] SL, MRSA DONE. STAT CXR DONE, PATIENT PLACED IN BED COMFORTABLY, VITAL SIGN ARE WITHIN NORMAL RANGE, PATIENT KEPT CLEAN AND DRY ALL NEEDS MET WILL CONTINUE TO MONITOR.
[2021-12-15] MEDS ORDERED: BUPIVACAINE 0.5 % PF 150 MG/30 ML VIAL ONE (06:35)
[2021-12-15 06:45] VITALS: BP 134/71
[2021-12-15] MEDS ORDERED: FENTANYL PF 100MCG/2ML AMPUL ONE (07:19)
--- NOTE | 2021-12-15 07:30 | NUR ---
RN CLOSING NOTES: PATIENT WAS COMPRESS ENGINEER AND TRANSFER TO OR BY THE STAFF AT 0650 ON STABLE CONDITION, ON STABLE CONDITION, NO COMPLAIN OF PAIN AND DISCOMFORT, CHART WAS TAKEN WITH ALL DOCUMENTATION, ENDORSEMENT GIVEN TO INCOMING NURSE INCLUDING PERSONAL BELONGING AT ROOM 321
[2021-12-15 09:10] VITALS: BP 117/70
--- NOTE | 2021-12-15 09:10 | NUR ---
PATIENT BACK FROM PROCEDURE, IN NO ACUTE DISTRESS OBSERVED. DOCUMENTED VITAL SIGNS IN AN INTERVENTION. WILL CONTINUE TO MONITOR.
--- NOTE | 2021-12-15 11:30 | NUR ---
PATIENT DISCHARGED FACILITY IN STABLE CONDITION.,DENIES PAIN OR DISCOMFORT, IN NO ACUTE DISTRESS OBSERVED. PATIENT LEFT FACILITY ACCOMPANIED BY STAFF TO THE PRIVATE CAR. REMOVED IV, REMINDER FOR FOLLOW UP WITH DR. HARDY IN 2 WEEKS.
== END 2021-12-15 19:00 | disposition home or self-care (01) ==
LOC: DS 05:16 → UNDOADMIN 05:18 → MED 05:18 → UNDODISIN 16:00 → DS 19:00
PROVIDERS: ATTEND Specialist
DX: G56.01 Carpal tunnel syndrome, right upper limb (principal); Z88.5 Allergy status to narcotic agent; Z98.890 Other specified postprocedural states; Z79.899 Other long term (current) drug therapy
CPT/HCPCS: 64721; 71045; 87081; A6402; J0330; J0690; J1100; J2310; J2370; J2405; J2704; J3010; J3490 ×2; J7030; G0378